=== PATIENT | female | born 1975 | race Caucasian/White ===

== ENCOUNTER 2019-10-17 14:03 | Inpatient (IN) ==
[2019-10-17 16:46] LABS: Amphetamine Screen,Urine Positive ng/mL (Cutoff=1000); Barbiturate Screen,Urine Negative ng/mL (Cutoff=200); Benzodiazepines Screen,Urine Negative ng/mL (Cutoff=200); Cannabinoid Screen,Urine Negative ng/mL (Cutoff = 50); Cocaine Screen,Urine Negative ng/mL (Cutoff= 300); Opiate Screen,Urine Negative ng/mL (Cutoff=300); Phencyclidine Screen,Urine Negative ng/mL (Cutoff=25)
[2019-10-17] MEDS ORDERED: Vicks Vaporub Oint 50 GM PACKAGE TP STA (17:29)
[2019-10-17 17:33] LABS: Acetaminophen < 10 mcg/mL (10-20); Ethanol < 10 mg/dL (Less than 10); Salicylate < 2.5 mg/dL (15.0-30.0)
[2019-10-17] MEDS ORDERED: hydrOXYzine pamoate 25 MG CAPSULE PO PRN (21:18)
[2019-10-17] MEDS ORDERED: Haloperidol Lactate 5 MG/ML VIAL IM PRN (21:18)
[2019-10-17] MEDS ORDERED: MOM Conc 10 ML UD.LIQ PO PRN (21:18)
[2019-10-17] MEDS ORDERED: traZODone 50 MG TABLET PO PRN (21:18)
[2019-10-17] MEDS ORDERED: Ibuprofen 400 MG TABLET PO PRN (21:18)
[2019-10-17] MEDS ORDERED: *HR* LORazepam 1 MG TABLET PO PRN (21:18)
[2019-10-17] MEDS ORDERED: *HR* LORazepam 2 MG/ML VIAL IM PRN (21:18)
[2019-10-17] MEDS ORDERED: Mag Hydrox/Al Hydrox/Simeth 30 ML UDC PO PRN (21:18)
[2019-10-17] MEDS: Nicotine 21 MG PATCH.TD24 TD SCH (21:45)
[2019-10-18] MEDS: Nicotine 21 MG PATCH.TD24 TD SCH (09:43)
[2019-10-18] MEDS: risperiDONE 1 MG TABLET PO SCH (20:52)
[2019-10-18] MEDS: Gabapentin 300 MG CAPSULE PO SCH (20:52)
[2019-10-19] MEDS: Gabapentin 300 MG CAPSULE PO SCH ×2 (09:38→20:55)
[2019-10-19] MEDS: risperiDONE 1 MG TABLET PO SCH ×2 (09:38→20:55)
[2019-10-19] MEDS: Nicotine 21 MG PATCH.TD24 TD SCH (09:38)
[2019-10-19] MEDS: GuaiFENesin/Dextromethorphan TABLET PO SCH (20:55)
[2019-10-20 08:27] VITALS: BP 110/75
[2019-10-20] MEDS: Nicotine 21 MG PATCH.TD24 TD SCH (10:05)
[2019-10-20] MEDS: GuaiFENesin/Dextromethorphan TABLET PO SCH (10:06)
[2019-10-20] MEDS: Gabapentin 300 MG CAPSULE PO SCH (10:06)
[2019-10-20] MEDS: risperiDONE 1 MG TABLET PO SCH (10:06)
== END 2019-10-20 13:10 | disposition home or self-care (01) | DRG 750 ==
LOC: EMEROOARM 14:03 → 1ANU 14:03
PROVIDERS: ADMIT Psychiatry & Neurology Psychiatry; ATTEND Psychiatry & Neurology Psychiatry